=== PATIENT | male | born 1980 | race African-American/Black ===

== ENCOUNTER 2022-05-29 10:44 | Emergency (ER) | payer OTHER, SELFPAY ==
[2022-05-29 11:03] VITALS: BP 141/99; PULSE 88; RESP 18; TEMP 36.9; O2SAT 99
--- NOTE | 2022-05-29 11:59 | ED.GENADULT ---
HPI - General Adult General Chief complaint: Extremity Problem,Nontraumatic Stated complaint: right lower leg numbness Time Seen by Provider: 05/29/22 11:15 History of Present Illness HPI narrative: this is a 41-year-old male presenting ED with chief complaint of right leg numbness. Patient has noted a week and half ago that he has decreased sensation over the anterior part of his right thigh. There is no associated muscle weakness. He denies any nor other neurologic defects. Patient has a history of type 1 diabetes that is well controlled with an insulin pump. Patient has no other symptoms at this time. Related Data Allergies Allergy/AdvReac Type Severity Reaction Status Date / Time No Known Allergies Allergy Verified 05/29/22 11:06 Review of Systems Review of Systems: CONSTITUTIONAL: Denies night sweats. EYES: No eye pain ENT: Denies rhinorrhea CARDIOVASCULAR: Denies palpitations RESPIRATORY: Denies hemoptysis GASTROINTESTINAL: Denies hematemesis GENITOURINARY: Denies hematuria. SKIN: Denies rash MUSCULOSKELETAL: Denies myalgia. NEUROLOGIC: Denies weakness. PSYCHIATRIC: Denies delusions [facility] Social History Social History (Updated 05/29/22 @ 12:01 by Girish Bernardo MD) Social History: Patient drinks alcohol occasionally, denies tobacco or drug use Exam Narrative: APPEARANCE: no apparent distress. Patient is physically fit mole. Head atraumatic. EYES: PERRLA/EOMI, NOSE: Normal no drainage NECK: Supple, Trachea midline RESPIRATORY: CTAB, No increased work of breathing. CARDIOVASCULAR: S1S2 appreciated ABDOMINAL: Soft, nontender, nondistended, MUSCULOSKELETAl: No obvious deformities, no back pain. No tenderness in the paraspinal muscles. NEURO: Alert. Cranial nerves 2-12 grossly intact. .motor function cerebellar function intact for 4 extremities. Gait exam was normal. Patient has decreased sensation in the L4 distribution over his right leg SKIN:: Warm, dry. Normal color PSYCHIATRIC: Normal affect Course Vital Signs Vital signs: Vital Signs Temperature 98.4 F 05/29/22 11:03 Pulse Rate 88 05/29/22 11:03 Respiratory Rate 18 05/29/22 11:03 Blood Pressure 141/99 H 05/29/22 11:03 Pulse Oximetry 99 05/29/22 11:03 Oxygen Delivery Room Air 05/29/22 11:03 Temperature 98.4 F 05/29/22 11:03 Pulse Rate 88 05/29/22 11:03 Respiratory Rate 18 05/29/22 11:03 Blood Pressure 141/99 H 05/29/22 11:03 Pulse Oximetry 99 05/29/22 11:03 Oxygen Delivery Room Air 05/29/22 11:03 Medical Decision Making MDM Narrative Medical decision making narrative: This is a 41-year-old male presenting ED with right leg numbness. He has isolated numbness over the anterior thigh in an L4 distribution. Patient has no back pain or other symptoms of sciatica. Neurologic exam was normal and not consistent with CVA. This is likely a peripheral neuropathy due the patient's diabetes. Patient will be discharged with neurology follow-up. Vital Signs Vital Signs: Vital Signs Temperature 98.4 F 05/29/22 11:03 Pulse Rate 88 05/29/22 11:03 Respiratory Rate 18 05/29/22 11:03 Blood Pressure 141/99 H 05/29/22 11:03 Pulse Oximetry 99 05/29/22 11:03 Oxygen Delivery Room Air 05/29/22 11:03 Temperature 98.4 F 05/29/22 11:03 Pulse Rate 88 05/29/22 11:03 Respiratory Rate 18 05/29/22 11:03 Blood Pressure 141/99 H 05/29/22 11:03 Pulse Oximetry 99 05/29/22 11:03 Oxygen Delivery Room Air 05/29/22 11:03 Discharge Plan Discharge Clinical Impression: Peripheral neuropathy Patient Disposition: Home, Self-Care Condition: Stable Instructions: Antibiotic Form, Peripheral Neuropathy (ED) Additional Instructions: Please follow-up with neurology. Please return emergency department if you develop weakness in your arms or legs. Follow-up/Referrals: Magnus Pearson MD [Physician] - [place],Pablo Farias MD [Primary Care Provider] -
== END 2022-05-29 12:17 | disposition home or self-care (01) ==
PROVIDERS: Emergency Provider Emergency Medicine; PCP Family Medicine
DX: E10.42 Type 1 diabetes mellitus with diabetic polyneuropathy (principal); Z79.4 Long term (current) use of insulin; Z96.41 Presence of insulin pump (external) (internal)
CPT/HCPCS: 99281